=== PATIENT | male | born 1955 | race Caucasian/White ===

== ENCOUNTER 2023-04-30 09:00 | Outpatient (NON) | payer MEDICARE, SELFPAY | END 2023-04-30 09:01 | disposition home or self-care (01) | LOC: ANHLAB 05-01 07:26 | PROVIDERS: PCP Family Medicine; Visit Provider Internal Medicine Gastroenterology | DX: D12.3 Benign neoplasm of transverse colon (principal); D12.0 Benign neoplasm of cecum | CPT/HCPCS: 88305 ==

== ENCOUNTER 2023-04-30 09:38 | Day surgery (SDC) | payer MEDICARE, SELFPAY ==
[2023-03-27 11:39] VITALS: BMI 29.0
[2023-04-10 15:23] VITALS: BMI 28.3
--- NOTE | 2023-04-29 12:47 | P.PNAN_ITS ---
Anes - Initial Pre Proc Eval Procedure: Operation Date: 04/30/23 11:30 Proposed Procedures p Screening Colonoscopy - Prashanth Theodore MD Date/Time: 04/29/23 12:47 Surgeon: Prashanth Theodore MD Pre Op Diagnosis: Neoplasm Screening Patient Data Age: 67 Gender: M Height: 1.88 m Weight: 100 kg Allergies Allergy/AdvReac Type Severity Reaction Status Date / Time ibuprofen Allergy Unknown HIVES, Verified 04/30/23 10:21 ITCHING Home Medications Medication Instructions Recorded Confirmed Type multivitamin,xe-qmfm-mauzgcqy 1 tablet PO DAILY 08/03/20 04/30/23 History (Complete Multivitamin tablet) sodium,potassium,mag sulfates 17.5 See Rx Instructions PO .COMPLEX 03/27/23 04/07/23 Rx gram-3.13 gram-1.6 gram oral soln #354 mL (Suprep Bowel Prep Kit) Patient hx anesthesia problems: none Family hx anesthesia problems: none Results Review: All pre-operative results and documents have been reviewed as part of the pre- operative evaluation. FORMERLY [facility], [facility] Past Medical History Medical History BMI 28.0-28.9,adult BMI 29.0-29.9,adult Erectile dysfunction High cholesterol Hyperlipidemia Neuropathy Screening for prostate cancer Surgical History Surgical History History of appendectomy 1975 History of colonoscopy 2018 Family History Family History Mother Diabetes mellitus Family history of diabetes mellitus in first degree relative Father Carcinoma of colon Lung cancer Sibling Lung replaced by transplant Diabetes mellitus Social History Social History Smoking status: Never smoker Second hand tobacco smoke exposure: Yes Alcohol intake: current Drinks per week: 2 Alcohol use details: social Substance use: never Substance use type: does not use Lack of Transportation: No Lack of Food: Never True Current Housing: I Have Housing Concerned About Future Housing: No Difficulty Paying Gas/Electric Bills: No Difficulty Paying for Meds: No Currently Unemployed: No Education: Bachelor's Degree Difficulty w/ Childcare or Family Care: No Living arrangements: with family Occupation/Education: retired 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 Informed Consent: The patient's anesthetic plan and its attendant risks and benefits were discussed with the patient/family/POA. Questions were solicited and answers provided to the satisfaction of the patient/family/POA.
[2023-04-30 10:17] VITALS: BP 146/89; PULSE 63; RESP 16; TEMP 36.8; O2SAT 97; BMI 28.9
[2023-04-30] MEDS: LACTATED RINGERS 1,000 ML 150 ML IV CONT (10:31)
--- NOTE | 2023-04-30 10:41 | PM.HPGS ---
History of Present Illness History of Present Illness Consent: Risks, benefits, and alternatives have been discussed and questions answered. Patient agrees to proceed with procedure. Chief complaint: Neoplasm Screening Narrative: Wally Parra is a 67 year old male Presents for screening colonoscopy. Patient's current weight appetite and bowel movements are normal. Patient denies abdominal pain. He has had no bleeding. Patient does have a history of a benign polyp removed from the colon in 2008. Most recent colonoscopy 2018 was unremarkable. Patient's family history is significant that his father had colon cancer. Patient presents today for neoplasia screening exam Review of Systems Review of Systems: review of systems noncontributory. [facility] Past Medical History Medical History BMI 28.0-28.9,adult BMI 29.0-29.9,adult Erectile dysfunction High cholesterol Hyperlipidemia Neuropathy Screening for prostate cancer Surgical History Surgical History History of appendectomy 1975 History of colonoscopy 2018 Family History Family History Mother Diabetes mellitus Family history of diabetes mellitus in first degree relative Father Carcinoma of colon Lung cancer Sibling Lung replaced by transplant Diabetes mellitus Social History Social History Smoking status: Never smoker Second hand tobacco smoke exposure: Yes Alcohol intake: current Drinks per week: 2 Alcohol use details: social Substance use: never Substance use type: does not use Lack of Transportation: No Lack of Food: Never True Current Housing: I Have Housing Concerned About Future Housing: No Difficulty Paying Gas/Electric Bills: No Difficulty Paying for Meds: No Currently Unemployed: No Education: Bachelor's Degree Difficulty w/ Childcare or Family Care: No Living arrangements: with family Occupation/Education: retired 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[employer] Gender identity (if verbalized by the patient): Male Spiritual care concerns: No Meds Home Medications and Allergies Home Medications Medication Instructions Recorded Confirmed Type multivitamin,vb-uemp-lrrxmqkx 1 tablet PO DAILY 08/03/20 04/30/23 History (Complete Multivitamin tablet) sodium,potassium,mag sulfates 17.5 See Rx Instructions PO .COMPLEX 03/27/23 04/07/23 Rx gram-3.13 gram-1.6 gram oral soln #354 mL (Suprep Bowel Prep Kit) Allergies Allergy/AdvReac Type Severity Reaction Status Date / Time ibuprofen Allergy Unknown HIVES, Verified 04/30/23 10:21 ITCHING Vital Signs Vital Signs - 24 hr 04/30/23 10:17 Temperature 98.2 F Pulse Rate 63 Respiratory Rate 16 Blood Pressure 146/89 H Pulse Oximetry 97 Oxygen Delivery Room Air Exam Narrative: Physical exam reveals patient to be alert. Vital signs stable. HEENT exam is unremarkable. Patient is anicteric. Lungs are clear to auscultation and percussion. Heart is without murmur or extra sounds. Abdomen bowel sounds are present soft nontender with no organomegaly. Digital external rectal exam is normal. Assessment and Plan Assessment and plan (1) Screen for colon cancer: Code(s): Z12.11 - Encounter for screening for malignant neoplasm of colon Status: Acute (2) Family history of colon cancer in father: Code(s): Z80.0 - Family history of malignant neoplasm of digestive organs Status: Acute Assessment and Plan: Patient's father had colon cancer. For this reason surveillance colonoscopy recommended now on at least every 5 years in the future.
[2023-04-30 11:35] VITALS: BP 130/78; PULSE 56; RESP 16; O2SAT 98
[2023-04-30 11:45] VITALS: BP 124/82; PULSE 58; RESP 16; O2SAT 100
[2023-04-30 11:55] VITALS: BP 139/90; PULSE 50; RESP 16; O2SAT 98
--- NOTE | 2023-04-30 13:39 | WPDANESPN ---
Anes - Prog Note Post-Op Date/Time: 04/30/23 13:39 Cardiovascular status: normal Respiratory status: normal Airway patency: baseline Mental status: baseline Post-Op hydration status: normal Vital Signs: Last Vital Signs Temp 36.8 C 04/30/23 10:17 Pulse 50 L 04/30/23 11:55 Resp 16 04/30/23 11:55 BP 139/90 04/30/23 11:55 Pulse Ox 98 04/30/23 11:55 O2 Del Method Room Air 04/30/23 11:55 Pain Score (VAS): 0 I/O: Intake & Output 04/29/23 04/30/23 04/30/23 23:59 07:59 15:59 Intake Total 600 Balance 600 Post-procedural complaints: none Patient Feedback: Patient satisfied with anesthetic care. Other Findings: Patient vital signs back to baseline. Patient denies nausea and vomiting. Patient's pain under control. Patient OK for discharge.
== END 2023-04-30 12:32 | disposition home or self-care (01) ==
PROVIDERS: PCP Family Medicine; Visit Provider Internal Medicine Gastroenterology
PROC: 0DJD8ZZ Inspection of Lower Intestinal Tract, Via Natural or Artificial Opening Endoscopic (ICD-10-PCS; CPT 45378; principal; 2023-04-30 11:30)
DX: Z12.11 Encounter for screening for malignant neoplasm of colon (principal)
CPT/HCPCS: 45385

== ENCOUNTER 2023-07-01 08:46 | Outpatient (CLI) | payer MEDICARE, SELFPAY ==
--- NOTE | 2023-07-01 09:17 | EST_ITS ---
Patient Info Name: Wally Parra Age: 67 years : 1955 Gender: Male Ht: 74 in Wt: 224 lbs BSA: 2.32 m2 HR: 50 bpm BP: 141 / 94 mmHg Heart Rhythm: Sinus Rhythm Exam Date: 07/01/2023 9:45 AM Exam Location: [facility] Stress Patient Status: Outpatient Admit Date: 07/01/2023 Staff Ordering Physician: Lucia Odell Attending Provider: Lucia Odell Exercise Technologist: Светлана Whitlock CT Exercise Physician: Avinash Sneed DO Exam Type: CA stress test treadmill Study Info A treadmill exercise stress test was performed. Summary 1. 1. Negative Mitch exercise stress test for ischemic ST changes by ECG criteria. 2. 2. Good functional capacity, achieving 12 METs of workload. 3. 3. Baseline hypertension. 4. 4. Appropriate HR response to exercise. 5. 5. Appropriate HR recovery at 1 minute post exercise. 6. 6. No imaging with stress testing. 7. 7. Patient informed of the above results. Protocol: Mitch Stress ECG Details Stage: REST Duration (min): 2 min : 29 sec Speed (mph): 0.0 Grade (%): 0 HR (bpm): 52 SBP (mmHg): 141 DBP (mmHg): 91 METS: --- Stage: REST Duration (min): 7 min : 5 sec Speed (mph): 0.0 Grade (%): 0 HR (bpm): 53 SBP (mmHg): 141 DBP (mmHg): 91 METS: --- Stage: STAGE 1 Duration (min): 1 min : 0 sec Speed (mph): 1.7 Grade (%): 10 HR (bpm): 68 SBP (mmHg): 141 DBP (mmHg): 91 METS: --- Stage: STAGE 1 Duration (min): 2 min : 0 sec Speed (mph): 1.7 Grade (%): 10 HR (bpm): 72 SBP (mmHg): 141 DBP (mmHg): 91 METS: --- Stage: STAGE 1 Duration (min): 3 min : 0 sec Speed (mph): 1.7 Grade (%): 10 HR (bpm): 76 SBP (mmHg): 141 DBP (mmHg): 91 METS: --- Stage: STAGE 2 Duration (min): 1 min : 0 sec Speed (mph): 2.5 Grade (%): 12 HR (bpm): 81 SBP (mmHg): 167 DBP (mmHg): 84 METS: --- Stage: STAGE 2 Duration (min): 2 min : 0 sec Speed (mph): 2.5 Grade (%): 12 HR (bpm): 81 SBP (mmHg): 180 DBP (mmHg): 96 METS: --- Stage: STAGE 2 Duration (min): 3 min : 0 sec Speed (mph): 2.5 Grade (%): 12 HR (bpm): 85 SBP (mmHg): 180 DBP (mmHg): 96 METS: --- Stage: STAGE 3 Duration (min): 1 min : 0 sec Speed (mph): 3.4 Grade (%): 14 HR (bpm): 94 SBP (mmHg): 160 DBP (mmHg): 95 METS: --- Stage: STAGE 3 Duration (min): 2 min : 0 sec Speed (mph): 3.4 Grade (%): 14 HR (bpm): 94 SBP (mmHg): 160 DBP (mmHg): 95 METS: --- Stage: STAGE 3 Duration (min): 3 min : 0 sec Speed (mph): 3.4 Grade (%): 14 HR (bpm): 98 SBP (mmHg): 202 DBP (mmHg): 80 METS: --- Stage: STAGE 4 Duration (min): 1 min : 0 sec Speed (mph): 4.2 Grade (%): 16 HR (bpm): 119 SBP (mmHg): 202 DBP (mmHg): 80 METS: --- Stage: STAGE 4 Duration (min): 1 min : 37 sec Speed (mph): 4.2 Grade (%): 16 HR (bpm): 132 SBP (mmHg): 202 DBP (mmHg): 80 METS: --- -----
== END 2023-07-01 08:47 | disposition home or self-care (01) ==
LOC: ANHCARD 08:49
PROVIDERS: PCP Family Medicine; Visit Provider Nurse Practitioner Family
DX: R06.02 Shortness of breath (principal); R07.89 Other chest pain
CPT/HCPCS: 93017

== ENCOUNTER 2024-04-27 08:24 | Outpatient (CLI) | payer MEDICARE, SELFPAY ==
--- NOTE | 2024-05-17 17:37 | WPDSLEEPSTUD ---
Sleep Study Date of Study: 04/27/24 Ordering Provider: Vazquez Evangelista MD Interpreting Physician: Angie Gregg MD Sleep Study Type: Polysomnogram Height: 1.88 m Weight: 99.79 kg Body Mass Index: 28.2 Neck Circumference (inches): 18 [place]: 19 Reason for Sleep Study Hypersomnolence Sleep History Wally Parra is a 68-year-old man with excessive daytime sleepiness. He never awakens from sleep feeling short of breath. He never wakes at night with heartburn, belching or coughing.??He occasionally snores loudly enough that others complain. He rarely has trouble sleeping when he has a cold. He never wakes up gasping for breath during the night. He rarely has breathing problems at night. He rarely sweats excessively at night. He never notices his heart pounding or beating irregularly during the night. He frequently falls asleep during the day. He rarely falls asleep involuntarily, never falls asleep while driving. He never experiences loss of muscle tone with strong emotion. He never feels paralyzed on waking or falling asleep. He never experiences vivid dreams upon waking or falling asleep. He never feels afraid of going to sleep. He rarely has nightmares. He rarely recalls his dreams. He rarely has thoughts racing through his mind. He rarely feels sad or depressed. He rarely feels anxiety. He never notices parts of his body jerk. He rarely kicks during the night. He never feels crawling or aching feelings in his legs. He never feels leg pain at night. He never has morning jaw pain, although occasionally he grinds his teeth at night. He rarely feels bothered by pain during the day, never awakened by pain during the night. He occasionally wakes up feeling stiff in the morning, and he occasionally wakes feeling sore or achy. He frequently awakens with pain in his neck, spine, or joints. He has memory problems, concentration difficulties and fatigue. Normal bedtime is 9:30 p.m., falling asleep within 15 minute, waking 3 times at night. When he wakes at night, he goes to the bathroom, returns to sleep within 10 minutes. Wake time is 5:00 a.m.. He typically gets 6-1/2 hours of sleep per night. He takes naps in the day, and a short nap lasting 10-15 minutes leaves him refreshed. He keeps a similar schedule on weekends. His bedtime is 10:30 p.m. and his wake time is 6:00 a.m. Habits:??Tobacco: Never smoker Caffeine: 2 cups of coffee daily Alcohol: 3 drinks per week Recreational substances: none PMFSH Past Medical History Medical History Erectile dysfunction Family history of colon cancer in father High cholesterol Hyperlipidemia Neuropathy Screen for colon cancer Screening for prostate cancer Screening for thyroid disorder Surgical History Surgical History History of appendectomy 1975 History of colonoscopy 2018 Family History Family History Mother Diabetes mellitus Family history of diabetes mellitus in first degree relative Heart disease Father Carcinoma of colon Lung cancer Sibling Lung replaced by transplant Diabetes mellitus Social History Social History Smoking status: Never smoker Second hand tobacco smoke exposure: Yes Alcohol intake: current Drinks per week: 2 Alcohol use details: social Substance use: never Substance use type: does not use Lack of Transportation: No Lack of Food: Never True Current Housing: I Have Housing Concerned About Future Housing: No Difficulty Paying Gas/Electric Bills: No Difficulty Paying for Meds: No Currently Unemployed: No Education: Bachelor's Degree Difficulty w/ Childcare or Family Care: No Living arrangements: with family Occupation/E
[2024-05-17 17:45] VITALS: BMI 28.2
== END 2024-04-28 06:43 | disposition home or self-care (01) ==
PROVIDERS: PCP Family Medicine; Visit Provider Family Medicine
DX: G47.10 Hypersomnia, unspecified (principal); G47.61 Periodic limb movement disorder
CPT/HCPCS: 95810

== ENCOUNTER 2025-08-24 02:09 | Day surgery (SDC) | payer MEDICARE, SELFPAY ==
[2025-08-17 08:51] VITALS: BMI 28.9
--- NOTE | 2025-08-17 08:52 | PC.NURSE ---
[facility] has started construction of its new state of the art ER which will open Spring 2026. With this, we anticipate parking may be a challenge for some our surgical patients and families. Parking spaces are limited but are available for all Surgical, obstetrics, and ER patients sharing this lot. If you arrive and find you are having a hard time finding a parking space, please note that we understand the challenges, please drive around the hospital and park near Hospital Entrance 1. When you enter this entrance, you can ask a volunteer to direct or take you back to the surgical waiting area to check in. We appreciate everyone?s understanding of these expected challenges while we build for your future. Report to the Outpatient Waiting Room, entrance under the green pavilion located off [address], at time _1145_ on date _[phone]_. Planned Procedure Time: _145pm_.? Time changes happen often and if your time is changed the preop area will call you the afternoon before. - You and your visitor will be asked to self-screen and do not enter if you have any COVID symptoms. Please call surgeon if you need to reschedule. - A mask is optional within the hospital at this time. Patients may have clear liquids (water, carbonated beverages, clear teas, apple juice) until 3 hours prior to surgery with a maximum of 20 ounces. - No food from midnight until time of surgery and no smoking, or chewing tobacco (or any form of nicotine). No chewing gum, candy or mints. Take only the following medications with a SIP of water on the morning of surgery: ___None____ DO NOT STOP ANY OF YOUR OTHER PRESCRIPTION MEDICATIONS PRIOR TO SURGERY EXCEPT THE FOLLOWING Hold all vitamins and supplements for 3 days per anesthesiologist. Medications to discontinue per physician Date to take last sysj__[phone]___ Please no make-up, nail slovenian, hairspray, perfume, deodorant, or body powder the day of surgery.? No jewelry (including any body piercings) or valuables the day of surgery, leave them at home.? Please take a shower or bath the night before, or the morning of, surgery with an antibacterial soap.? Wear comfortable, loose fitting clothing.? - Jewelry must be removed prior to entering the operating room.? Rings and piercings that are not removed may be cut off. - The hospital will not accept responsibility for valuables.? - Please leave all valuables, including medications, at home the day of surgery. If you are going home after surgery, a licensed shuttle driver must drive you home.? - NO public transportation without another adult if you receive anesthesia. - We recommend that an adult stay with you for 24 hours following discharge. - We also recommend that you do not drive, make important decision, drink alcoholic beverages, or take any drugs that were not prescribed by your health care provider for at least 24 hours after your discharge time. Follow any additional instructions given to you from your surgeon. Telephone instructions given to __Jim__and asked if any additional questions and then verbalized understanding. Patient advised to call surgeon office or pre surgery nurse liaison [phone] if any additional questions.
[2025-08-24] VITALS (11 sets, daily range): BP systolic 120–153; BP diastolic 73–90; PULSE 50–68; RESP 14–18; TEMP 35.8–36.7; O2SAT 96–100; BMI 29.7
--- OUTSIDE RECORDS SUMMARY | 2025-08-24 02:11 | XMS_ITS | Clinical Summary ---
Author Organization [facility] Address [address] Attn: Epic Prelude ADT [place] [id number] Care Team Providers Care Industrial Engineer Name Role Phone Vazquez Evangelista MD Primary Care Provider [phone] Social History Tobacco Use Types Packs/Day Years Used Date Smoking Tobacco: Never Assessed Sex and Gender Information Value Date Recorded Sex Assigned at Not on file Legal Sex Male 5:17 PM [employer] Gender Identity Not on file Sexual Orientation Not on file Plan of Treatment Health Maintenance Due Date Last Done Comments DTAP/TDAP/TD VACCINES (1 - Tdap) 1976 FIT-DNA Q 3 years 2002 FIT/FOBT Q 1 year 2002 Flex Sig/CT Colonography Q 5 years 2002 PNEUMOCOCCAL VACCINE 50+ YEARS (1 of 1 - PCV) 07/21/20 07 ZOSTER VACCINE (1 of 2) 2007 INFLUENZA VACCINE (#1) 2025 COLORECTAL SCREENING 09/06/2028 09/06/2018 Colorectal Cancer Screening 09/06/2028 RSV VACCINE (60+ or ) (1 - 1-dose 75+ series) 2032 Care Teams Industrial Engineer Relationship Specialty Start Date End Date Vazquez Evangelista MD [address] [place] [id number] PCP - General Family Practice 01/30/21
--- NOTE | 2025-08-24 06:16 | WPDHPUPDATE1 ---
History and Physical Update Update Date/Time: 08/24/25 06:16 History and Physical has been reviewed, including an updated exam of the patient. There are NO changes in the patient's condition. Risks, benefits, and alternatives have been discussed and questions answered. Patient agrees to proceed with procedure.
--- NOTE | 2025-08-24 08:09 | WPDANESEPPF ---
Anes - Initial Pre Proc Eval Procedure: Operation Date: 08/24/25 13:15 Proposed Procedures p Trans Urethral Resection Prostate - Kevin Lowe MD Date/Time: 08/24/25 08:09 Surgeon: Kevin Lowe MD Pre Op Diagnosis: BPH Patient Data Age: 70 Gender: M Height: 1.88 m Weight: 102.3 kg Allergies Allergy/AdvReac Type Severity Reaction Status Date / Time No Known Allergies Allergy Verified 08/24/25 11:42 Home Medications ?Medication ?Instructions ?Recorded ?Confirmed ?Type multivitamin,cr-jjai-jvpniuwd 1 tablet PO DAILY 08/03/20 08/24/25 History (Complete Multivitamin tablet) cyanocobalamin (vitamin B-12) 1,000 mcg PO DAILY 06/02/23 08/24/25 History 1,000 mcg capsule cholecalciferol (vitamin D3) 250 250 mcg PO DAILY 03/09/24 08/24/25 History mcg (10,000 unit) capsule albuterol sulfate 90 mcg/actuation 2 inh inhalation Q4H PRN 07/12/24 08/17/25 Rx aerosol inhaler bronchospasm #6.7 grams tamsulosin 0.4 mg capsule (Flomax) 0.4 mg PO QHS #90 caps 05/06/25 08/24/25 Rx atorvastatin 40 mg tablet 20 mg (1/2 x 40 mg) PO QHS #90 tabs 08/24/25 Rx Patient hx anesthesia problems: none Family hx anesthesia problems: none Results Review: All pre-operative results and documents have been reviewed as part of the pre-operative evaluation. [facility] Past Medical History Medical History Screening for prostate cancer Chest discomfort Family history of colon cancer in father Screening for thyroid disorder Screen for colon cancer Erectile dysfunction Screening for prostate cancer Hyperlipidemia High cholesterol Neuropathy Surgical History Surgical History History of colonoscopy 2018 History of appendectomy 1975 Family History Family History Mother Diabetes mellitus Family history of diabetes mellitus in first degree relative Heart disease Father Carcinoma of colon Lung cancer Sibling Lung replaced by transplant Diabetes mellitus Social History Social History Smoking status: Never smoker Second hand tobacco smoke exposure: Yes Alcohol intake: current Drinks per week: 2 Alcohol use details: social Substance use: never Substance use type: does not use Do You Feel Safe in your Home?: Yes Lack of Transportation: No Lack of Food: Never True Current Housing: I Have Housing Concerned About Future Housing: No Difficulty Paying Gas/Electric Bills: No Difficulty Paying for Meds: No Currently Unemployed: No Education: Bachelor's Degree Difficulty w/ Childcare or Family Care: No Living arrangements: with family Occupation/Education: retired Additional occupation/education comments: [employer] Gender identity (if verbalized by the patient): Male Spiritual care concerns: No Anes - Eval Final PreProcedure Day of Procedure 08/24/25 08:09 Patient weight: overweight Heart: regular rate and rhythm Lungs: clear to auscultation Airway: Mallampati scale class II Neurological: alert and oriented Last oral intake: >/= 8 hours ASA classification: II Emergent: no Anesthetic plan: proceed Anesthesia type and monitoring: general LMA and standard monitoring Results Review: All pre-operative results and documents have been reviewed as part of the pre-operative evaluation. Informed Consent: The patient's anesthetic plan and its attendant risks and benefits were discussed with the patient/family/POA. Questions were solicited and answers provided to the satisfaction of the patient/family/POA.
--- NOTE | 2025-08-24 11:28 | ECG_ITS ---
Test Date: 2025-08-24 11:44:36 Measurements Intervals [place] Rate: 55 P: 28 MA: 180 QRS: -7 QRSD: 92 T: -7 QT: 430 QTc: 413 Interpretive Statements SINUS BRADYCARDIA DELAYED PRECORDIAL R/S TRANSITION LOW QRS VOLTAGE IN PRECORDIAL LEADS INFERIOR INFARCT, AGE INDETERMINATE BORDERLINE T WAVE ABNORMALITY- ANTERIOR LEADS BASELINE ARTIFACT- I, III, AVL, V2, V4 ABNORMAL ECG No previous ECG available for comparison Electronically Signed On 08-24-2025 11:57:18 CDT by Avinash Sneed D.O.
[2025-08-24] MEDS: LACTATED RINGERS 1,000 ML 30 ML IV CONT ×2 (11:50→14:15)
[2025-08-24] MEDS: ceFAZolin 2 GM in SODIUM CHLORIDE 0.9% IV 50 ML 100 ML IVPB (12:54)
--- NOTE | 2025-08-24 13:40 | S_PTH ---
PATIENT: Wally Parra LOC: [facility] U#:[id number] AGE/SX: 70/M ROOM: RE08/24/[address]: Kevin Lowe MD : 1955 BED: DIS: 08/25/2025 SPEC #: [id number] RECD: 08/24/25 14:28 STATUS: HEIKE REQ #: [id number] HARI: 08/24/25 13:[address]: Kevin Lowe DEPT: [facility] Surgical RECD BY: Kalpana Jj ENTERED: 08/24/25 14:28 SP TYPE: Surgical OTHR DR: Vazquez Evangelista MD Tissues: A - Prostate Turp Procedures: Hematoxylin and Eosin Stain Gross and Microscopic Level 4
--- NOTE | 2025-08-24 13:53 | P.OP_ITS ---
Procedure Note - Detailed Date of Procedure 08/24/25 Pre-op Diagnosis BPH Post-op Diagnosis Same Procedure Performed TURP Surgeon Kevin Lowe MD Anesthesia General Description of Procedure The patient was brought to the operative suite where he is prepped and draped in routine sterile fashion while in the dorsal lithotomy position after the uneventful induction of a general LMA anesthetic. A 24 Nigerian resectoscope sheath was placed into his bladder. He had no urethral strictures. The patient had trilobar hyperplasia with a [small/moderate/large] median lobe. The bladder itself was endoscopically normal, showing no mucosal hyperemia, intravesical neoplasm or foreign bodies. There was a single, orthotopic ureteral orifice bilaterally. These orifices were identified and preserved throughout the remainder of the procedure. Attention was first turned to resection of the median lobe. This resection was undertaken from the bladder neck to the verumontanum and carried out until the transverse fibers of the bladder neck were identified. The left lateral lobe was then resected starting at the 6 o'clock position, working counter clockwise to the 12 o'clock position. Again, resection was carried out from the bladder neck to the verumontanum until the capsular fibers of the prostate were janel ntified. The right lateral lobe was resected in a similar fashion starting at the 6 o'clock position working clockwise to the 12 o'clock position and carried out until the capsular fibers of the prostate were identified. Apical tissue was then circumferentially resected. All chips were evacuated from the bladder using an Pikhub evacuator. Hemostasis was obtained with electric cautery. The ureteral orifices were again inspected and found to be without injury. Estimated blood loss throughout this procedure was 50cc. The patient was taken to recovery room having tolerated this well. Drains Yes Complications No immediate complications Condition Stable
[2025-08-24] MEDS: fentaNYL CITRATE INJ (*CRX) 100 MCG/2 ML VIAL 25 MCG IV PUSH ×2 (14:04→14:15)
--- NOTE | 2025-08-24 14:55 | ADMGEN ---
This patient, Wally Parra, was admitted to 3 [facility] Surg Room 327-01. Patient/family oriented to hospital policies and general routines including ID bracelet, bed and alarms, visiting hours, pain management, procedures, bathroom and other care routines, personal items, smoking policy, room service/diet, and visiting hours. Information on how to activate the Rapid Response Team has been discussed. Patient/Family are encouraged to report perceived risks to care and to ask questions if they do not understand what they are told or what they should do.
[2025-08-24] MEDS: DOCUSATE SODIUM 100 MG CAPSULE PO (17:15)
[2025-08-24] MEDS: HYDROcodone/acetaminophen (*CRX) 5-325 MG TABLET 1 TAB PO ×2 (17:15→21:32)
[2025-08-24] MEDS: ceFAZolin 1 GM in SODIUM CHLORIDE 0.9% IV 50 ML 100 ML IVPB (20:59)
[2025-08-25 00:03] VITALS: BP 122/67; PULSE 61; RESP 20; TEMP 36; O2SAT 96
[2025-08-25] MEDS: ceFAZolin 1 GM in SODIUM CHLORIDE 0.9% IV 50 ML 100 ML IVPB (04:33)
[2025-08-25 05:27] VITALS: BP 129/71; PULSE 57; RESP 16; TEMP 36.2; O2SAT 97
[2025-08-25 06:09] LABS: Hematocrit 46.1 % (42.0-52.0); Hemoglobin 15.1 g/dL (14.0-18.0)
[2025-08-25 06:24] LABS: Anion Gap 8 mmol/L (4-12); Blood Urea Nitrogen 18 mg/dL (9-20); Calcium 8.3 mg/dL (8.4-10.2); Carbon Dioxide 24 mmol/L (22-30); Chloride 106 mmol/L (98-107); Estimated CRCL calculation 79 ml/min; Estimated Glomerular Filt Rate > 60; Glucose 129 mg/dL (65-110); Potassium 4.1 mmol/L (3.4-5.0); Sodium 138 mmol/L (137-145)
--- NOTE | 2025-08-25 07:16 | P.PNUR_ITS ---
Progress Note: A&P Assessment and Plan (1) BPH associated with nocturia: Code(s): N40.1 - Benign prostatic hyperplasia with lower urinary tract symptoms; R35.1 - Nocturia Status: Acute Assessment and Plan: * Doing well POD #1 TURP. * CBI stopped / voiding trial later this morning ir urine remains clear Subjective Subjective Date/Time Seen: 08/25/25 07:16 Interval history: Comfortable, no events overnight Review of Systems Cardiovascular: Cardiovascular: Denies chest pain, Denies lightheadedness, Denies palpitations and Denies dyspnea Respiratory: Respiratory: Denies dyspnea Gastrointestinal: Gastrointestinal: Denies diarrhea, Denies nausea and Denies vomiting Genitourinary: Genitourinary: Denies hematuria and Denies dysuria Endocrine: Endocrine: Denies palpitations Exam Const: General: no acute distress Resp: Effort & Inspection: normal respiratory effort GI: Inspection: non-distended GI Palp: No abdominal tenderness and No Guarding due to palpation present (GI) Auscultation: normal bowel sounds Objective Data Vital Signs Vital Signs: Vital Signs - 24 hr 08/24/25 11:30 08/24/25 13:50 08/24/25 14:05 Temperature 98.0 F 98.1 F Pulse Rate 54 L 60 55 L Respiratory Rate 18 18 15 Blood Pressure 143/75 H 120/79 137/87 Pulse Oximetry 100 100 100 Oxygen Delivery Room Air Simple Face Mask Simple Face Mask Oxygen Flow Rate 8 8 08/24/25 14:20 08/24/25 14:35 08/24/25 14:45 Temperature Pulse Rate 55 L 58 L 55 L Respiratory Rate 14 14 14 Blood Pressure 132/86 139/81 140/90 Pulse Oximetry 96 98 97 Oxygen Delivery Room Air Room Air Room Air Oxygen Flow Rate 08/24/25 14:48 08/24/25 15:03 08/24/25 15:30 Temperature 96.9 F L 96.9 F L Pulse Rate 52 L 50 L Respiratory Rate 18 18 Blood Pressure 148/80 H 141/88 H Pulse Oximetry 99 96 Oxygen Delivery Room Air Oxygen Flow Rate 08/24/25 15:33 08/24/25 16:33 08/24/25 20:33 Temperature 96.4 F L 96.4 F L 96.9 F L Pulse Rate 63 68 58 L Respiratory Rate 18 18 18 Blood Pressure 153/81 H 142/83 H 137/73 Pulse Oximetry 100 98 96 Oxygen Delivery Oxygen Flow Rate 08/24/25 20:59 08/25/25 00:03 08/25/25 05:27 Temperature 96.8 F L 97.1 F L Pulse Rate 61 57 L Respiratory Rate 20 16 Blood Pressure 122/67 129/71 Pulse Oximetry 96 97 Oxygen Delivery Room Air Oxygen Flow Rate Intake/Output Intake/Output: Intake & Output 08/22/25 08/23/25 08/24/25 08/25/25 23:59 23:59 23:59 23:59 Intake Total 790 600 Output Total 9513 325 Balance -8735 275 Meds/Results Medications: Active Medications Generic Name Dose Route Start Last Admin Trade Name Freq PRN Reason Stop Dose Admin Hydrocodone Bitart/Acetaminophen 1 tab 08/24/25 14:48 08/24/25 21:32 Hydrocodone/Acetaminophen (*Crx) 5-325 Mg Tablet PO 1 tab Q4H PRN Administration Pain Rated 1-6 Albuterol 2 puff 08/24/25 14:48 Albuterol Sulfate (*Sp) Aerosol 1 Puff INHALATION Q4HRT PRN Bronchospasm Cephalexin HCl 500 mg 08/25/25 12:00 Cephalexin 500 Mg Capsule PO Q6HR [place] Docusate Sodium 100 mg 08/24/25 17:00 08/24/25 17:15 Docusate Sodium 100 Mg Capsule PO 100 mg BID [place] Administration Hyoscyamine 0.125 mg 08/24/25 14:48 Hyoscyamine Sulfate 0.125 Mg Tablet SUBLINGUAL Q6H PRN Bladder Spasm Dextrose/Lactated Ringer's 1,000 mls @ 125 mls/hr 08/24/25 14:48 08/24/25 16:15 Dextrose 5%/Lactated Ringers IV CONT Not Given .Q8H [place] Morphine Sulfate 2 mg 08/24/25 14:48 Morphine Sulfate (*Crx) 4 Mg/Ml Inj IV PUSH Q2H PRN Pain Rated 7-10 Naloxone HCl 0.1 mg 08/24/25 14:48 Naloxone Hcl 0.4 Mg/Ml Vial IV PUSH Q2M PRN Opiate Reversal Ondansetron HCl 4 mg 08/24/25 14:48 Ondansetron Inj 4 Mg/2 Ml Vial IV PUSH Q12H PRN Nausea And Vomiting Labs Labs: Laboratory Results - last 24 hr 08/25/25 05:48 Hgb 15.1 Hct 46.1 Sodium 138 Potassium 4.1 Chloride 106 Carbon Dioxide 24 Anion Gap 8 BUN 18 Creatinine 0.92 Estim Creat Clear Calc 79 Estimated GFR > 60 Glucose 129 H Calcium 8.3 L
[2025-08-25 08:33] VITALS: BP 139/72; PULSE 52; RESP 18; TEMP 36.1; O2SAT 98
[2025-08-25] MEDS: DOCUSATE SODIUM 100 MG CAPSULE PO (10:26)
[2025-08-25 12:33] VITALS: BP 133/69; PULSE 55; RESP 18; TEMP 36.1; O2SAT 98
[2025-08-25] MEDS: CEPHALEXIN 500 MG CAPSULE PO (12:34)
--- NOTE | 2025-08-25 15:36 | PM.DS ---
DS: Admitting Diagnosis Discharge Date 09/25/2025 Admitting Diagnosis BPH DS: Discharge Diagnosis Discharge Diagnosis (1) BPH associated with nocturia: Code(s): N40.1 - Benign prostatic hyperplasia with lower urinary tract symptoms; R35.1 - Nocturia Status: Acute DS: Summary Hospital Course Hospital Course: This patient with longstanding prostatism refractory for medical management was admitted on the morning of his planned TURP. The procedure was undertaken on that same day in an uneventful fashion. His post-operative course was, likewise, uneventful. On the evening of the procedure he was tolerating a diet. On POD#1 his urine was clear on CBI. The urine remained clear and, therefore, the catheter was removed late morning. The patient was observed for several hours, until he demonstrated he could void effectively without significant hematuria. He was discharged with careful instruction on limiting physical activity x2 weeks and plans to f/ in 2-3 weeks. At discharge he was comfortable and tolerating a diet. Time Spent with Patient Time attestation: Total time spent providing and/or coordinating discharge services: DS: Data Data Completed and Pending Completed studies during hospitalization: Pending at discharge 08/24/25 13:40 Surgical [PTH] Routine Labs on day of discharge: Labs from last 24 hours 08/25/25 05:48 Hgb 15.1 Hct 46.1 Sodium 138 Potassium 4.1 Chloride 106 Carbon Dioxide 24 Anion Gap 8 BUN 18 Creatinine 0.92 Estim Creat Clear Calc 79 Estimated GFR > 60 Glucose 129 H Calcium 8.3 L Discharge Plan Discharge Patient Disposition: Home Discharge Instructions: 1) Activity: No lifting/straining >15lbs. x2 weeks. 2) Diet: Resume normal pre-admission diet. 3) Follow-up: 2-3 weeks / call office for appointment ([phone]). Patient Language: Mohawk Stand Alone Forms: General Discharge Instructions Discharge Medications: New docusate sodium [Colace] 100 mg capsule 100 mg PO DAILY Qty: 30 0RF hydrocodone-acetaminophen 5-325 mg tablet 1 - 2 tablet PO Q6H PRN (Reason: pain) Qty: 12 0RF sulfamethoxazole-trimethoprim 800-160 mg tablet 1 tablet PO Q12H Qty: 6 0RF Continued Complete Multivitamin Tablet 1 tablet PO DAILY cyanocobalamin (vitamin B-12) 1,000 mcg capsule 1,000 mcg PO DAILY cholecalciferol (vitamin D3) 250 mcg (10,000 unit) capsule 250 mcg PO DAILY albuterol sulfate 90 mcg/actuation HFA aerosol inhaler 2 inh inhalation Q4H PRN (Reason: bronchospasm) Qty: 6.7 3RF atorvastatin 40 mg tablet 20 mg PO QHS Qty: 90 1RF Discontinued tamsulosin [Flomax] 0.4 mg capsule 0.4 mg PO QHS Qty: 90 2RF
== END 2025-08-25 16:15 | disposition home or self-care (01) ==
LOC: ANHSURGERY 14:00 → ANH3MEDSUR 14:52
PROVIDERS: PCP Family Medicine; Visit Provider Urology
PROC: 0VT08ZZ Resection of Prostate, Via Natural or Artificial Opening Endoscopic (ICD-10-PCS; CPT 52601; principal; 2025-08-24 13:15)
DX: N40.1 Benign prostatic hyperplasia with lower urinary tract symptoms (principal); R35.0 Frequency of micturition; E78.00 Pure hypercholesterolemia, unspecified; N52.9 Male erectile dysfunction, unspecified; G62.9 Polyneuropathy, unspecified; Z79.51 Long term (current) use of inhaled steroids; Z98.890 Other specified postprocedural states; Z80.0 Family history of malignant neoplasm of digestive organs; Z80.1 Family history of malignant neoplasm of trachea, bronchus and lung; Z82.49 Family history of ischemic heart disease and other diseases of the circulatory system
CPT/HCPCS: 52601; 36415; 80048; 85014; 85018; 88305; 93005; J0690; A9270; C1757; J1100; J2003; J2405; J2704; J3010; J7120